=== PATIENT | male | born 1960 ===

== ENCOUNTER → 2020-09-12 | Day surgery (SDC) | payer MEDICAID ==
[~2020-09-12] MED LIST: Lactated Ringers 1,000 ML IV SCH; Lidocaine 1%/Sod Bicarbonate in NS 8.4% 1 ML Syringe IDERM PRN; Midazolam 1 MG/ML 2 ML SDV ONE; Propofol 200 MG/20 ML SDV ONE; Sodium Chloride 0.9% 10 ML Syringe FLUSH PRN
--- NOTE | 2020-09-12 09:01 | PCM.PREANE ---
Preanesthetic Assessment - Procedure Proposed Procedure: colonoscopy - Anesthesia/Transfusion/Family Hx Anesthesia History: Prior Anesthesia Without Reaction Family History of Anesthesia Reaction: No Transfusion History: No Prior Transfusion(s) Intubation History: Unknown - Review of Systems General: No Symptoms Pulmonary: No Symptoms Cardiovascular: No Symptoms Gastrointestinal: No Symptoms Neurological: No Symptoms, Other (right arm slightly numb after having a neck fusion surgery ) Other: Reports: None - Physical Assessment NPO Status Date: 09/11/20 NPO Status Time: 04:00 Vital Signs: Last Vital Signs Temp Pulse 70 09/12/20 08:30 Resp 16 09/12/20 08:30 BP 164/98 H 09/12/20 08:30 Pulse Ox 97 09/12/20 08:30 Height: 1.78 m Weight: 87 kg ASA Class: 2 Mental Status: Alert & Oriented x3 Dentition: Reports: Normal Dentition (fixed retainer on bottom ) Thyro-Mental Finger Breadths: 3 Mouth Opening Finger Breadths: 4 ROM/Head Extension: Full (good range of motion) Lungs: Clear to Auscultation, Normal Respiratory Effort Cardiovascular: Regular Rate, Regular Rhythm - Allergies Allergies/Adverse Reactions: Allergies Allergy/AdvReac Type Severity Reaction Status Date / Time No Known Allergies Allergy Verified 09/11/20 13:07 - Blood Blood Available: No Product(s) Available: None - Anesthesia Plan Pre-Op Medication Ordered: None - Acknowledgements Anesthesia Type Planned: MAC Pt an Appropriate Candidate for the Planned Anesthesia: Yes Alternatives and Risks of Anesthesia Discussed w Pt/Guardian: Yes Pt/Guardian Understands and Agrees with Anesthesia Plan: Yes PreAnesthesia Questionnaire HEENT History: Reports: Other (See Below) Other HEENT History: nose irritation, sinus infection Cardiovascular History: Reports: Heart Valve Replacement, High Cholesterol Other Respiratory History: cough Gastrointestinal History: Reports: None Genitourinary History: Reports: Other (See Below) Other Genitourinary History: dysuria CARE DIRECTOR History: Reports: None Musculoskeletal History: Reports: Back Pain, Chronic, Neck Pain, Chronic Neurological History: Reports: None Psychiatric History: Reports: None Endocrine/Metabolic History: Reports: None Hematologic History: Reports: None Immunologic History: Reports: None Oncologic (Cancer) History: Reports: None Dermatologic History: Reports: Other (See Below) Other Dermatologic History: rash, seborrheic dermatitis, skin lesion - Infectious Disease History Infectious Disease History: Reports: None - Past Surgical History Head Surgeries/Procedures: Reports: None Cardiovascular Surgical History: Reports: None Respiratory Surgical History: Reports: None GI Surgical History: Reports: Colonoscopy Female Surgical History: Reports: None Male Surgical History: Reports: None Endocrine Surgical History: Reports: None Neurological Surgical History: Reports: None Musculoskeletal Surgical History: Reports: Other (See Below) Other Musculoskeletal Surgeries/Procedures:: finger fracture with repair Oncologic Surgical History: Reports: None Dermatological Surgical History: Reports: None - SUBSTANCE USE Tobacco Use Status *Q: Never Tobacco User Days Per Week of Alcohol Use: 3 Number of Drinks Per Day: 3 Total Drinks Per Week: 9 Recreational Drug Use History: No - HOME MEDS Home Medications: Home Meds Losartan [Cozaar] 50 mg PO DAILY 09/11/20 [History] Tamsulosin [Flomax] 0.4 mg PO DAILY 09/11/20 [History] amLODIPine [Norvasc] 5 mg PO DAILY 09/11/20 [History] hydroCHLOROthiazide [Hydrochlorothiazide] 25 mg PO DAILY 09/11/20 [History] - CURRENT (IN HOUSE) MEDS Current Meds: Current Medications Lactated Ringer's (Ringers, Lactated) 1,000 mls @ 125 mls/hr IV ASDIRECTED SOHAN Stop: 09/12/20 23:00 Lidocaine/Sodium Bicarbonate (Buffered Lidocaine 1% In Ns 8.4%) 0.25 ml IDERM ONETIME PRN PRN Reason: Prior to IV Start Stop: 09/12/20 18:00 Sodium Chloride (Saline Flush) 10 ml FLUSH ASDIRECTED PRN PRN Reason: Keep Vein Open Stop: 09/12/20 18:00
--- NOTE | 2020-09-12 09:50 | PCM48HPAN ---
Post Anesthesia Note - EVALUATION WITHIN 48HRS OF ANESTHETIC Vital Signs in Normal Range: Yes Patient Participated in Evaluation: Yes Respiratory Function Stable: Yes Airway Patent: Yes Cardiovascular Function Stable: Yes Hydration Status Stable: Yes Pain Control Satisfactory: Yes Nausea and Vomiting Control Satisfactory: Yes Mental Status Recovered: Yes Vital Signs: 0946 160/74 94 RA 57 16 97.2 Last Vital Signs Temp Pulse 70 09/12/20 08:30 Resp 16 09/12/20 08:30 BP 164/98 H 09/12/20 08:30 Pulse Ox 97 09/12/20 08:30
--- NOTE | 2020-09-12 09:53 | PCM.PRNOTE ---
- Free Text/Narrative Note: Date: 09/12/2020 Procedure: diagnostic colonoscopy Indication: positive hemoccult test Endoscopist: Kevin Huff MD Findings: two small pedunculated polyps within the rectum. Moderate diverticular disease. Detailed Report: The patient was taken to the endoscopy suite and placed in left lateral decubitus position. Timeout was performed and monitored anesthesia care was initiated. Visual inspection of the anus revealed no abnormality. Digital rectal exam was unremarkable, the prostate felt normal. The colonoscope was lubricated and inserted in the anus and advanced all the way to the cecum. The appendiceal orifice was visualized, and the terminal ileum was intubated. The prep was excellent. The scope was slowly withdrawn, and mucosal surfaces were carefully inspected. There was some diverticular disease throughout the colon, most notably in the sigmoid colon. At approximately 15 cm from the anal verge, 2 subcentimeter pedunculated polyps were identified within the rectum. Both were removed using hot snare polypectomy technique. Specimens were retrieved and sent for pathology. On retroflexion of the scope within the rectum, no abnormalities were noted. Air was suctioned from the colon prior to withdrawal of the scope. The patient tolerated the procedure well.
== END | disposition home or self-care (01) ==
LOC: JD.SDS 08:07
PROVIDERS: ATTEND Surgery
DX: D12.8 Benign neoplasm of rectum (principal); K57.30 Diverticulosis of large intestine without perforation or abscess without bleeding; I10 Essential (primary) hypertension; E78.00 Pure hypercholesterolemia, unspecified; G89.29 Other chronic pain; Z79.899 Other long term (current) drug therapy; Z98.890 Other specified postprocedural states
CPT/HCPCS: 45385; J2250; J2704; 00811

== ENCOUNTER 2023-07-22 09:52 | Day surgery (SDC) | payer MEDICAID ==
[2023-07-22] MEDS ORDERED: Lidocaine 1% 4 ML ONE (10:48)
[2023-07-22] MEDS ORDERED: fentaNYL 100 MCG/2 ML SDV ONE (10:48)
[2023-07-22] MEDS ORDERED: Propofol 200 MG/20 ML SDV ONE (10:48)
[2023-07-22] MEDS ORDERED: Lactated Ringers 1,000 ML IV SCH (13:00)
== END 2023-07-22 12:20 | disposition home or self-care (01) ==
LOC: JD.SDS 09:52
PROVIDERS: ATTEND Surgery
DX: K21.9 Gastro-esophageal reflux disease without esophagitis (principal); K29.50 Unspecified chronic gastritis without bleeding; K29.80 Duodenitis without bleeding; F41.9 Anxiety disorder, unspecified; F32.A Depression, unspecified; I10 Essential (primary) hypertension; E78.5 Hyperlipidemia, unspecified; G47.00 Insomnia, unspecified; M54.9 Dorsalgia, unspecified; G89.29 Other chronic pain; Z79.899 Other long term (current) drug therapy
CPT/HCPCS: 43239; J2704; J3010; J7120; 00731; J3490